=== PATIENT | male | born 1995 | race Caucasian/White ===

== ENCOUNTER 2018-10-02 17:43 | Emergency (ER) | payer MEDICAID ==
[2018-10-02] MEDS ORDERED: Penicillin V Potassium 250 MG Tab PO ONE (17:44)
--- NOTE | 2018-10-02 19:08 | EDM.PDOC ---
ED HPI GENERAL MEDICAL PROBLEM - General Chief Complaint: ENT Problem Stated Complaint: POSSIBLE STREP THROAT Time Seen by Provider: 10/02/18 19:03 Source of Information: Reports: Patient History Limitations: Reports: No Limitations - History of Present Illness INITIAL COMMENTS - FREE TEXT/NARRATIVE: Pleasant healthy or muscle well-nourished young male 2 days history of sore throat and left otalgia and moderate cervical adenopathy Throat, L ear Pain Score (Numeric/FACES): 7 - Related Data Allergies Allergy/AdvReac Type Severity Reaction Status Date / Time No Known Allergies Allergy Verified 10/02/18 18:41 Home Meds: Home Meds NK [No Known Home Meds] 10/02/18 [History] ED ROS ENT - Review of Systems Review Of Systems: ROS reveals no pertinent complaints other than HPI. ED EXAM, ENT - Physical Exam Exam: See Below Text/Narrative:: Possible muscle well-nourished young male who has sore throat 2 days duration. And moderate left otalgia Exam Limited By: No Limitations General Appearance: Moderate Distress Eye Exam: Bilateral Eye: Normal Inspection Ears: Normal External Exam, Other (Trace pinkness left TM not read) Nose: Normal Inspection Mouth/Throat: Normal Inspection, Normal Gums, Normal Lips, Tonsillar Erythema, Tonsillar Exudates Head: Atraumatic, Normocephalic Respiratory/Chest: No Respiratory Distress, Lungs Clear, Normal Breath Sounds, No Accessory Muscle Use, Chest Non-Tender Cardiovascular: Normal Peripheral Pulses, Regular Rate, Rhythm, No Edema, No Gallop, No JVD, No Murmur, No Rub GI/Abdominal: Normal Bowel Sounds, Soft, Non-Tender, No Organomegaly, No Distention (Male) Exam: Deferred Rectal (Males) Exam: Deferred Back: Normal Inspection, Full Range of Motion Extremities: Normal Inspection, Normal Range of Motion, Normal Capillary Refill Skin: Warm, Dry, Intact, Normal Color Course - Vital Signs Last Recorded V/S: Last Vital Signs Temp 37.1 C 10/02/18 18:37 Pulse 118 H 10/02/18 18:37 Resp 18 10/02/18 18:37 BP 165/100 H 10/02/18 18:37 Pulse Ox 98 10/02/18 18:37 Departure - Departure Time of Disposition: 19:50 (Coccal pharyngitis treat with Pen-Vee K 5 mg twice a day 20 tablets) Disposition: Home, Self-Care 01 Condition: Good Clinical Impression: Streptococcal pharyngitis - Discharge Information *PRESCRIPTION DRUG MONITORING PROGRAM REVIEWED*: Not Applicable *COPY OF PRESCRIPTION DRUG MONITORING REPORT IN PATIENT FIONA: Not Applicable Referrals: PCP,None [Primary Care Provider] -
== END 2018-10-02 19:23 | disposition home or self-care (01) ==
LOC: FB.ED 17:43
DX: J02.0 Streptococcal pharyngitis (principal)
CPT/HCPCS: 87880; 99283; A9270